=== PATIENT | male | born 1955 | race Caucasian/White ===

== ENCOUNTER 2021-09-09 20:36 | Inpatient (IN) | payer MEDICARE, OTHER ==
[~2021-09-09] VITALS: Ht 170.2 cm; Wt 81.2 kg
--- NOTE | 2021-09-09 21:04 | NUR ---
PATIENT CAME TO THE ER BED 7 BIBRA FROM HOME C/O SHORTNESS OF BREATH WITH 87% O2 ON ROOM AIR. PATIENT IS AT 93% 02 SATURATION WITH 1 L OF N/C. PATIENT IS ALERT AND ORIENTED x4. PATIENT TESTED POSITIVE FOR COVID ON WEDNESDAY (09/02/21). PATIENT IS CONNECTED TO THE MONITOR.
--- NOTE | 2021-09-09 21:36 | NUR ---
BLOOD COLLECTED AND SENT TO THE LAB.
[2021-09-09 21:40] LABS: BASOPHILS # (AUTO) 0.1 K/uL (0.0-0.2); BASOPHILS % (AUTO) 1.6 % (0.0-2.0); EOSINOPHILS % (AUTO) 12.3 % (0.0-6.0); HEMATOCRIT 41 % (39-51); HEMOGLOBIN 14.2 g/dL (13.5-17.5); LYMPHOCYTES # (AUTO) 1.2 K/uL (0.8-4.8); LYMPHOCYTES % (AUTO) 21.8 % (20.0-44.0); MEAN CORPUSCULAR HGB CONC 35 g/dl (31.0-36.0); MEAN CORPUSCULAR VOLUME 91 fL (80-96); MONOCYTES # (AUTO) 0.3 K/uL (0.1-1.30); MONOCYTES % (AUTO) 4.9 % (2.0-12.0); NEUTROPHILS # (AUTO) 3.3 K/uL (1.8-8.9); NEUTROPHILS % (AUTO) 59.4 % (43.0-81.0); PLATELET COUNT (AUTO) 138 K/uL (150-450); WHITE BLOOD COUNT (AUTO) 5.6 K/uL (4.3-11.0)
[2021-09-09 21:47] LABS: CALCIUM, SERUM 7.9 mg/dL (8.5-10.1); CARBON DIOXIDE 26 mmol/L (21-32); CHLORIDE 105 mmol/L (98-107); CREATININE 1.3 mg/dL (0.6-1.3); GLUCOSE 129 mg/dL (74-106); POTASSIUM 3.7 mmol/L (3.5-5.1); SODIUM SERUM 139 mmol/L (136-145); UREA NITROGEN, BLOOD 17 mg/dL (7-18)
[2021-09-09] MEDS ORDERED: CEFTRIAXONE 1GM BAG (ER ONLY) 50 ML IV ONE (22:29)
[2021-09-09] MEDS ORDERED: ACETAMINOPHEN ES 500 MG TABLET ONE (22:30)
[2021-09-09] MEDS ORDERED: AZITHROMYCIN 500 MG in IV D5W 250 ML IV ONE (22:30)
[2021-09-09] MEDS ORDERED: CEFTRIAXONE 1GM BAG (ER ONLY) 1 GM/50 ML PIGGYBACK IV ONE (22:30)
[2021-09-09] MEDS ORDERED: ACETAMINOPHEN 325 MG TABLET PO ONE (22:30)
[2021-09-09] MEDS ORDERED: AZITHROMYCIN 500 MG VIAL ONE (22:42)
--- NOTE | 2021-09-09 23:40 | NUR ---
DR JORGE ON THE PHONE W/ DR DAVIS
[2021-09-09] MEDS ORDERED: ACETAMINOPHEN 325 MG TABLET PO PRN (23:51)
[2021-09-09] MEDS ORDERED: ONDANSETRON HCL/PF 4 MG/2 ML VIAL IVP PRN (23:51)
[2021-09-10] VITALS (8 sets, daily range): BP systolic 141–155; BP diastolic 80–88
[2021-09-10] MEDS ORDERED: methylPREDNISolone SOD SUCC 125 MG/2ML VIAL IV ONE
--- NOTE | 2021-09-10 00:36 | NUR ---
report given to enid armando for kt
--- NOTE | 2021-09-10 00:45 | NUR ---
ADMIT NOTE RECEIVED PATIENT FROM ER, TRANSFERRED TO ROOM 108. AMBULATED TO BED WITH ASSISTANCE. PATIENT IS ALERT AND ORIENTED X3. LIBYAN SPEAKING, KNOWS SIMPLE BELARUSIAN. DENIES ANY PAIN AT THIS TIME. ON O2 3L VIA NASAL CANNULA, O2 SSAT 95%. NO S/S OF RESPIRATORY DISTRESS. TELE MONITOR ON, SR 80'S. SKIN ASSESSMENT DONE, SKIN IS CLEAN AND INTACT. IV ACCESS ON LEFT AC #20, PATENT AND INTACT. ORIENTED PATIENT TO ROOM, CALL LIGHT, AND STAFF. BED LOCKED AND IN LOWEST POSITION. CALL LIGHT WITHIN REACH. ALL NEEDS ANTICIPATED.
--- NOTE | 2021-09-10 00:57 | NUR ---
Pt transported to unit on gurney with emt and rn at bedside w/ acls protocol. nad noted during transport.
--- NOTE | 2021-09-10 06:31 | NUR ---
RN NOTE PATIENT IS RESTING IN BED. ON O2 3L VIA NASAL CANNULA, O2 SAT 94%. NO S/S OF RESPIRATORY DISTRESS. IV ACCESS ON LEFT AC #20, PATENT AND INTACT. SLEPT COMFORTABLY THROUGHOUT THE NIGHT. ALL NEEDS ATTENDED PROMPTLY. WILL ENDORSE TO AM SHIFT.
[2021-09-10 06:34] LABS: BASOPHILS % (AUTO) 0.3 % (0.0-2.0); HEMATOCRIT 39 % (39-51); LYMPHOCYTES # (AUTO) 0.9 K/uL (0.8-4.8); LYMPHOCYTES % (AUTO) 20.6 % (20.0-44.0); MEAN CORPUSCULAR HGB CONC 36 g/dl (31.0-36.0); MEAN CORPUSCULAR VOLUME 90 fL (80-96); MONOCYTES # (AUTO) 0.1 K/uL (0.1-1.30); MONOCYTES % (AUTO) 2.6 % (2.0-12.0); NEUTROPHILS # (AUTO) 3.4 K/uL (1.8-8.9); NEUTROPHILS % (AUTO) 76.5 % (43.0-81.0); PLATELET COUNT (AUTO) 125 K/uL (150-450); RED BLOOD CELL COUNT(AUTO) 4.38 MIL/uL (4.5-6.0); WHITE BLOOD COUNT (AUTO) 4.4 K/uL (4.3-11.0)
[2021-09-10] MEDS ORDERED: AZIT250T13 PO (08:46)
[2021-09-10] MEDS ORDERED: OMEP20CA15 PO (08:46)
[2021-09-10] MEDS ORDERED: GABA-532 PO (08:46)
[2021-09-10] MEDS ORDERED: PROM6.2516 PO (08:46)
[2021-09-10] MEDS ORDERED: AMLO-212 PO (08:46)
[2021-09-10] MEDS ORDERED: TOPI25TA49 PO (08:46)
[2021-09-10] MEDS ORDERED: TRAM50TA2 PO (08:46)
[2021-09-10] MEDS ORDERED: METH2.5T14 PO (08:46)
[2021-09-10] MEDS ORDERED: OXYB5TAB16 PO (08:46)
[2021-09-10] MEDS ORDERED: MECL-159 PO (08:46)
[2021-09-10] MEDS ORDERED: TERA1CAP11 PO (08:46)
[2021-09-10] MEDS: ZINC SULFATE 220 MG CAPSULE PO SCH (08:47)
[2021-09-10] MEDS: DEXAMETHASONE SOD PHOSPHATE 10 MG/ML VIAL IV SCH (08:47)
[2021-09-10] MEDS: ASCORBIC ACID 500 MG TABLET PO SCH (08:47)
[2021-09-10] MEDS: CHOLECALCIFEROL 1,000 UNIT TABLET (VIT D3) PO SCH (08:47)
[2021-09-10] MEDS ORDERED: DEXAMETHASONE SOD PHOSPHATE 6 MG in IV D5W 50 ML IV SCH (09:00)
[2021-09-10] MEDS: ENOXAPARIN SODIUM 40 MG/0.4 ML DISP.SYRIN SQ SCH ×2 (09:30→10:55)
[2021-09-10 09:59] LABS: CALCIUM, SERUM 7.9 mg/dL (8.5-10.1); CREATININE 1.2 mg/dL (0.6-1.3); POTASSIUM 4.2 mmol/L (3.5-5.1)
[2021-09-10] MEDS ORDERED: MECLIZINE HCL 25 MG TABLET PO PRN (10:00)
[2021-09-10] MEDS ORDERED: TRAMADOL HCL 50 MG TABLET PO PRN (10:00)
[2021-09-10] MEDS ORDERED: PROMETHAZINE HCL SYRUP 6.25 MG/5 ML UDC PO PRN (10:00)
[2021-09-10 10:19] LABS: ALBUMIN 3.1 g/dL (3.4-5.0); BILIRUBIN,DIRECT 0.2 mg/dL (0.0-0.2); BILIRUBIN,TOTAL 0.5 mg/dL (0.2-1.0); TOTAL PROTEIN, SERUM 7.3 g/dL (6.4-8.2)
[2021-09-10] MEDS ORDERED: REMDESIVIR (CHARGED) 200 MG, *LOADING DOSE 1 EA in IV NS 0.9% 210 ML IV ONE (11:00)
[2021-09-10] MEDS: TOPIRAMATE 25 MG TABLET PO SCH (16:06)
--- NOTE | 2021-09-10 19:56 | NUR ---
RN NOTE RECEIVED PATIENT IN BED, AWAKE, ALERT, AND VERBALLY RESPONSIVE. ABLE TO MAKE NEEDS KNOWN. BREATHING EVEN AND UNLABORED. NO SOB NOTED. NOTED WITH PRODUCTIVE COUGH. SURGICAL MASK PROVIDED TO PATIENT. CURRENTLY TOLERATING OXYGEN AT 2L/MIN VIA NASAL CANNULA. SKIN WARM AND DRY, DENIES FEELING DISCOMFORT AT THIS TIME. DENIES FEELING HEADACHE/N/V. SKIN WARM AND DRY. AFEBRILE. DENIES CONSTIPATION/DIARRHEA. NOTED WITH LEFT FOREARM 20G, PATENT, NO INFILTRATION NOTED. PROVIDED WITH BEDSIDE URINAL. BED LOW, IN LOCKED POSITION, CALL LIGHT WITHIN REACH.
[2021-09-11] VITALS: BP 142/81
[2021-09-11 04:00] VITALS: BP 141/85
[2021-09-11 07:25] LABS: ALBUMIN 2.9 g/dL (3.4-5.0); BILIRUBIN,DIRECT 0.2 mg/dL (0.0-0.2); BILIRUBIN,TOTAL 0.5 mg/dL (0.2-1.0); CALCIUM, SERUM 8.4 mg/dL (8.5-10.1); CREATININE 0.9 mg/dL (0.6-1.3); POTASSIUM 4.1 mmol/L (3.5-5.1); TOTAL PROTEIN, SERUM 7.1 g/dL (6.4-8.2)
[2021-09-11 07:35] LABS: BASOPHILS % (AUTO) 0.1 % (0.0-2.0); HEMATOCRIT 39 % (39-51); LYMPHOCYTES # (AUTO) 1.1 K/uL (0.8-4.8); LYMPHOCYTES % (AUTO) 18.6 % (20.0-44.0); MEAN CORPUSCULAR HGB CONC 36 g/dl (31.0-36.0); MEAN CORPUSCULAR VOLUME 89 fL (80-96); MONOCYTES # (AUTO) 0.6 K/uL (0.1-1.30); MONOCYTES % (AUTO) 9.4 % (2.0-12.0); NEUTROPHILS # (AUTO) 4.4 K/uL (1.8-8.9); NEUTROPHILS % (AUTO) 71.9 % (43.0-81.0); PLATELET COUNT (AUTO) 141 K/uL (150-450); RED BLOOD CELL COUNT(AUTO) 4.37 MIL/uL (4.5-6.0); WHITE BLOOD COUNT (AUTO) 6.1 K/uL (4.3-11.0)
--- NOTE | 2021-09-11 07:54 | NUR ---
RN NOTES RN ENDORSED BY OUTSIDE PHYSICAL DAMAGE APPRAISER NURSE AWAKE IN BED. PATIENT IS A&O X4. PATIENT SHOWS NO SIGNS OF DISTRESS OR SOB. BREATHING IS EVEN AND UNLABORED. BILATERAL CHEST RISE AND FALL NOTED. PATIENT IS NO 2L/MIN NC AND IS TOLERATING TREATMENT WELL. PATIENT EXPRESSES NO DISCOMFORT OR PAIN AT THIS TIME. ALL SAFETY MEASURES TAKEN. BED IS AT LOWEST POSITION WITH THE WHEELS LOCKED IN PLACE. CALL LIGHT IS WITHIN REACH. WILL CONTINUE TO MONITOR FOR ANY CHANGES IN CONDITION THROUGHOUT SHIFT.
[2021-09-11 08:00] VITALS: BP 151/88
[2021-09-11] MEDS: CHOLECALCIFEROL 1,000 UNIT TABLET (VIT D3) PO SCH (08:18)
[2021-09-11] MEDS: OXYBUTYNIN CHLORIDE 5 MG TABLET PO SCH (08:19)
[2021-09-11] MEDS: GABAPENTIN 100 MG CAPSULE PO SCH (08:19)
[2021-09-11] MEDS: PANTOPRAZOLE 40 MG TABLET.DR PO SCH (08:20)
[2021-09-11] MEDS: ENOXAPARIN SODIUM 40 MG/0.4 ML DISP.SYRIN SQ SCH (08:29)
[2021-09-11] MEDS: ASCORBIC ACID 500 MG TABLET PO SCH (08:30)
[2021-09-11] MEDS: TERAZOSIN HCL 1 MG CAPSULE PO SCH (08:30)
[2021-09-11] MEDS: AMLODIPINE BESYLATE 5 MG TABLET PO SCH (08:31)
[2021-09-11] MEDS: ZINC SULFATE 220 MG CAPSULE PO SCH (08:31)
[2021-09-11] MEDS: TOPIRAMATE 25 MG TABLET PO SCH ×2 (08:31→16:55)
[2021-09-11] MEDS: DEXAMETHASONE SOD PHOSPHATE 10 MG/ML VIAL IV SCH (08:32)
[2021-09-11] MEDS: REMDESIVIR (CHARGED) 100 MG in IV NS 0.9% 100 ML IV SCH (10:52)
--- NOTE | 2021-09-11 11:21 | NUR ---
RN NOTES RECEIVED BLOOD CULTURE REPORTS FROM [facility] WITH RESULTS OF GRAM POSITIVE COCCI IN CLUSTERS. MD NOTIFIED. AWAITING FOR FURTHER ORDERS. WILL CONTINE TO MONITOR.
[2021-09-11 12:00] VITALS: BP 112/54
[2021-09-11 16:00] VITALS: BP 148/76
--- NOTE | 2021-09-11 18:37 | NUR ---
RN CLOSING NOTES; PT IN BED RESTING. PT A/OX4, PLEASANT AND COOPERATIVE. PT AMBULATES TO THE RESTROOM INDEPENDENTLY. L FA #20 M FLUSHED, PATENT WITH NO SIGNS OF IFILTRATON. ALL MEDICATIONS GIVEN AND TOLERATED WELL. PT KEPT CLEAN, DRY, AND COMFORTABLE. SAFETY MEASURES RENDERED, BED IN LOWEST POSITION, LOCKED, WITH CALL LIGHT WITHIN REACH. ENDORSED TO PRECISION MARKET INSIGHTS RN IN STABLE CONDITION.
[2021-09-11 20:00] VITALS: BP 118/66
--- NOTE | 2021-09-11 20:00 | NUR ---
senior telecommunications consultant NOTE RECEIVED PATIENT IN BED, AWAKE, a/ox4, AND VERBALLY RESPONSIVE. ABLE TO MAKE NEEDS KNOWN. BREATHING EVEN AND UNLABORED. NO SOB NOTED. ON 2LITERS OF 02 VIA NC SATING 93%. SKIN WARM AND DRY, NO C/O OF PAIN OR DISCOMFORT . SKIN WARM AND DRY. AFEBRILE. NOTED WITH LEFT FOREARM 20G, PATENT, NO INFILTRATION NOTED. BED LOW, IN LOCKED POSITION, CALL LIGHT WITHIN REACH. PRECAUTIONARY MEASURES OBSERVED AT ALL TIMES .WILL CONTINUE TO MONITOR PTS.
[2021-09-12] VITALS: BP 140/71
[2021-09-12 04:00] VITALS: BP 141/87
--- NOTE | 2021-09-12 06:35 | NUR ---
MOTION GRAPHICS ARTIST NOTES Pts in bed awake a/o x4 remains on 2 liters via nc no sob no distress noted , v/s stable afebrile precautionary measures observed at all times . will endorse to rn day shift for continuity of care.
[2021-09-12 07:30] LABS: HEMATOCRIT 40 % (39-51); HEMOGLOBIN 13.7 g/dL (13.5-17.5); LYMPHOCYTES # (AUTO) 1.2 K/uL (0.8-4.8); LYMPHOCYTES % (AUTO) 10.4 % (20.0-44.0); MEAN CORPUSCULAR HGB CONC 34 g/dl (31.0-36.0); MEAN CORPUSCULAR VOLUME 91 fL (80-96); MONOCYTES # (AUTO) 0.9 K/uL (0.1-1.30); MONOCYTES % (AUTO) 7.7 % (2.0-12.0); NEUTROPHILS # (AUTO) 9.3 K/uL (1.8-8.9); NEUTROPHILS % (AUTO) 81.9 % (43.0-81.0); PLATELET COUNT (AUTO) 188 K/uL (150-450); WHITE BLOOD COUNT (AUTO) 11.3 K/uL (4.3-11.0)
--- NOTE | 2021-09-12 07:30 | NUR ---
RN OPENING NOTES: RECEIVED PT IN BED RESTING. PT A/OX4, PLEASANT AND COOPERATIVE. IN NO ACUTE DISTRESS NOTED, ON O2 VIA NC AT 2LPM, TOLERATING WELL, NO SOB NOTED AT THIS TIME. NOTED WITH IV ACCESS ON LFA g#20, FLUSHED, PATENT WITH NO SIGNS OF INFILTRATION. SAFETY MEASURES IN PLACE, BED IN LOWEST POSITION, LOCKED, WITH CALL LIGHT WITHIN REACH, SIED RAILS UP X 2. WILL CONTINUE TO MONITOR ACCORDINGLY.
[2021-09-12] MEDS: PANTOPRAZOLE 40 MG TABLET.DR PO SCH (07:46)
[2021-09-12 08:00] VITALS: BP 129/73
[2021-09-12 08:06] LABS: ALBUMIN 2.9 g/dL (3.4-5.0); BILIRUBIN,DIRECT 0.3 mg/dL (0.0-0.2); BILIRUBIN,TOTAL 0.6 mg/dL (0.2-1.0); CREATININE 1.1 mg/dL (0.6-1.3); POTASSIUM 3.7 mmol/L (3.5-5.1); TOTAL PROTEIN, SERUM 6.9 g/dL (6.4-8.2)
[2021-09-12] MEDS: DEXAMETHASONE SOD PHOSPHATE 10 MG/ML VIAL IV SCH (09:07)
[2021-09-12] MEDS: ASCORBIC ACID 500 MG TABLET PO SCH (09:08)
[2021-09-12] MEDS: ENOXAPARIN SODIUM 40 MG/0.4 ML DISP.SYRIN SQ SCH (09:08)
[2021-09-12] MEDS: CHOLECALCIFEROL 1,000 UNIT TABLET (VIT D3) PO SCH (09:09)
[2021-09-12] MEDS: AMLODIPINE BESYLATE 5 MG TABLET PO SCH (09:09)
[2021-09-12] MEDS: OXYBUTYNIN CHLORIDE 5 MG TABLET PO SCH (09:09)
[2021-09-12] MEDS: GABAPENTIN 100 MG CAPSULE PO SCH (09:10)
[2021-09-12] MEDS: ZINC SULFATE 220 MG CAPSULE PO SCH (09:13)
[2021-09-12] MEDS: TOPIRAMATE 25 MG TABLET PO SCH ×2 (09:13→17:32)
[2021-09-12] MEDS: TERAZOSIN HCL 1 MG CAPSULE PO SCH (09:14)
[2021-09-12] MEDS: REMDESIVIR (CHARGED) 100 MG in IV NS 0.9% 100 ML IV SCH (10:02)
--- NOTE | 2021-09-12 13:34 | NUR ---
patient room air sat at rest 86% per md arrange home oxygen,FACILITY ATTENDANT NOTIFIED.
[2021-09-12 16:17] VITALS: BP 125/65
--- NOTE | 2021-09-12 18:51 | NUR ---
RN CLOSING NOTES: PT IN BED RESTING. PT A/OX4, PLEASANT AND COOPERATIVE. IN NO ACUTE DISTRESS NOTED, ON O2 VIA NC AT 2LPM, TOLERATING WELL, NO SOB NOTED AT THIS TIME. NOTED WITH IV ACCESS ON LFA g#20, FLUSHED, PATENT WITH NO SIGNS OF INFILTRATION. SAFETY MEASURES IN PLACE, BED IN LOWEST POSITION, LOCKED, WITH CALL LIGHT WITHIN REACH, SIED RAILS UP X 2. ALL DUE MEDS GIVEN ORDERED, NEEDS ATTENDED AND MET. WILL ENDORSE TO ONCOMING SHIFT FOR ANGELA.
[2021-09-12 20:00] VITALS: BP 155/84
[2021-09-13 04:00] VITALS: BP 151/84
--- NOTE | 2021-09-13 05:55 | NUR ---
RN notes In bed resting comfortably with no distress noted. On 2 lpm O2 via nasal cannula , tolerating well. Alert and oriented., able to verbally communicate needs. No complaint of pain or discomfort. Kept clean and dry. Will endorse to next shift for continuity of care.
[2021-09-13 07:10] LABS: BASOPHILS # (AUTO) 0.1 K/uL (0.0-0.2); BASOPHILS % (AUTO) 0.7 % (0.0-2.0); EOSINOPHILS % (AUTO) 0.5 % (0.0-6.0); HEMATOCRIT 31 % (39-51); HEMOGLOBIN 10.3 g/dL (13.5-17.5); LYMPHOCYTES # (AUTO) 2.1 K/uL (0.8-4.8); LYMPHOCYTES % (AUTO) 17.2 % (20.0-44.0); MEAN CORPUSCULAR HGB CONC 33 g/dl (31.0-36.0); MEAN CORPUSCULAR VOLUME 94 fL (80-96); MONOCYTES % (AUTO) 7.8 % (2.0-12.0); NEUTROPHILS # (AUTO) 9.1 K/uL (1.8-8.9); NEUTROPHILS % (AUTO) 73.8 % (43.0-81.0); PLATELET COUNT (AUTO) 193 K/uL (150-450); RED BLOOD CELL COUNT(AUTO) 3.32 MIL/uL (4.5-6.0); WHITE BLOOD COUNT (AUTO) 12.3 K/uL (4.3-11.0)
--- NOTE | 2021-09-13 07:58 | NUR ---
MS/RN OPENING NOTES RECEIVED PATIENT ON BED AWAKE ALERT AND ORIENTED X4. PATIENT IS ON 2 L OXYGEN VIA NASAL CANNULA TOLERATING WELL. PATIENT IN NO APPARENT RESPIRATORY DISTRESS NOTED. NO COMPLAINED OF PAIN NOTED AT THIS TIME. WILL CONTINUE TO MONITOR.
[2021-09-13 08:03] LABS: ALBUMIN 2.7 g/dL (3.4-5.0); BILIRUBIN,DIRECT 0.1 mg/dL (0.0-0.2); BILIRUBIN,TOTAL 0.6 mg/dL (0.2-1.0); CALCIUM, SERUM 8.5 mg/dL (8.5-10.1); CREATININE 0.7 mg/dL (0.6-1.3); POTASSIUM 4.7 mmol/L (3.5-5.1); TOTAL PROTEIN, SERUM 5.9 g/dL (6.4-8.2)
[2021-09-13] MEDS: PANTOPRAZOLE 40 MG TABLET.DR PO SCH (08:25)
[2021-09-13] MEDS: CHOLECALCIFEROL 1,000 UNIT TABLET (VIT D3) PO SCH ×2 (08:25→08:50)
[2021-09-13] MEDS: ZINC SULFATE 220 MG CAPSULE PO SCH ×2 (08:25→08:52)
[2021-09-13] MEDS: TOPIRAMATE 25 MG TABLET PO SCH ×2 (08:50→16:29)
[2021-09-13] MEDS: ASCORBIC ACID 500 MG TABLET PO SCH (08:51)
[2021-09-13] MEDS: OXYBUTYNIN CHLORIDE 5 MG TABLET PO SCH (08:51)
[2021-09-13] MEDS: GABAPENTIN 100 MG CAPSULE PO SCH (08:52)
[2021-09-13] MEDS: TERAZOSIN HCL 1 MG CAPSULE PO SCH (08:53)
[2021-09-13] MEDS: AMLODIPINE BESYLATE 5 MG TABLET PO SCH (08:53)
[2021-09-13] MEDS: ENOXAPARIN SODIUM 40 MG/0.4 ML DISP.SYRIN SQ SCH (08:54)
[2021-09-13] MEDS: DEXAMETHASONE SOD PHOSPHATE 10 MG/ML VIAL IV SCH (08:55)
[2021-09-13] MEDS: METHOTREXATE SODIUM (2.5MG) 2.5 MG TABLET PO SCH ×2 (08:58→09:00)
--- NOTE | 2021-09-13 09:00 | NUR ---
MS/RN NOTES PATIENT REFUSED TO TAKE METHOTREXATE 15MG P.O. PATIENT VERBALIZED HE DOESN'T WANT TO MIX WITH OTHER MEDICATIONS. MD WAS AWARE.
--- NOTE | 2021-09-13 10:00 | NUR ---
MS/RN NOTES 0800 PATIENTS IS ON 2 L OXYGEN VIA NASAL CANNULA SA02 87% TITRATE OXYGEN TO 10 L VIA FACE MASK SA02 96%-99% PATIENT WAS CALM AND NO APPARENT RESPIRATORY DISTRESS NOTED. WILL CONTINUE TO MONITOR.
[2021-09-13] MEDS: REMDESIVIR (CHARGED) 100 MG in IV NS 0.9% 100 ML IV SCH (10:03)
--- NOTE | 2021-09-13 18:54 | NUR ---
MS/RN CLOSING NOTES PATIENT IS ON BED AWAKE ALERT AND ORIENTED X X4. PATIENT IS ON 10L OXYGEN VIA FACE MASK SATURATION 95%. PATIENT IN NO APPARENT RESPIRATORY DISTRESS NOTED. NO COMPLAINED OF PAIN NOTED AT THIS TIME. IV ACCESS AT LEFT AC AC #20G PATENT AND INTACT. SEEN AND EXAMINED BY MD WITH ORDERS MADE AND CARRIED OUT ALL DUE MEDICATIONS WAS GIVEN. SAFETY PRECAUTIONS WAS IN PLACED. BED IN LOWEST POSITION AND LOCKED. SIDERAILS UP X2. CALL LIGHT WITHIN REACH. WILL ENDORSED TO BELLSTAND ATTENDANT FOR ANGELA.
--- NOTE | 2021-09-13 19:00 | NUR ---
RN NOTE RECEIVED PATIENT IN BED, AO X 4, IN NO S/SX OF ACUTE DISTRESS AT THIS TIME. RESPIRATIONS EVEN AND UNLABORED, SATURATION AT 94% ON 10L VIA SIMPLE MASK, HR IS 97. NOTED IV SITE AT LAC 20G, PATENT AND FLUSHING WELL, NO S/S OF INFECTION OR INFILTRATION. SAFETY MEASURES IMPLEMENTED. HEAD OF BED ELEVATED. BED IS LOCKED, IN LOWEST POSITION AND SIDE RAILS UP. CALL LIGHT WITHIN REACH OF THE PATIENT. WILL CONTINUE TO MONITOR AND REASSESS FOR ANY CHANGES.
[2021-09-13 20:00] VITALS: BP 137/76
[2021-09-14] VITALS: BP 134/65
[2021-09-14 04:00] VITALS: BP 132/83
[2021-09-14 06:36] LABS: ALBUMIN 2.9 g/dL (3.4-5.0); BILIRUBIN,DIRECT 0.2 mg/dL (0.0-0.2); BILIRUBIN,TOTAL 0.6 mg/dL (0.2-1.0); CREATININE 0.8 mg/dL (0.6-1.3); POTASSIUM 4.6 mmol/L (3.5-5.1); TOTAL PROTEIN, SERUM 6.4 g/dL (6.4-8.2)
[2021-09-14 06:49] LABS: BASOPHILS % (AUTO) 0.1 % (0.0-2.0); EOSINOPHILS % (AUTO) 0.2 % (0.0-6.0); HEMATOCRIT 32 % (39-51); HEMOGLOBIN 10.7 g/dL (13.5-17.5); LYMPHOCYTES # (AUTO) 1.4 K/uL (0.8-4.8); MEAN CORPUSCULAR HGB CONC 34 g/dl (31.0-36.0); MEAN CORPUSCULAR VOLUME 94 fL (80-96); MONOCYTES # (AUTO) 0.7 K/uL (0.1-1.30); MONOCYTES % (AUTO) 5.7 % (2.0-12.0); NEUTROPHILS # (AUTO) 9.7 K/uL (1.8-8.9); PLATELET COUNT (AUTO) 209 K/uL (150-450); WHITE BLOOD COUNT (AUTO) 11.8 K/uL (4.3-11.0)
[2021-09-14 06:59] LABS: CALCIUM, SERUM 8.8 mg/dL (8.5-10.1)
--- NOTE | 2021-09-14 07:20 | NUR ---
RN NOTE PATIENT IS IN BED WITH HOB AT SEMI FOWLERS POSITION. PATIENT IS ON 15L NRB. PATIENT IS AOX4. LAC 20G IS PATENT AND INTACT. BED IS LOCKED IN THE LOWEST POSITION, 3 GUARD RAILS RAISED, CALL LORENZO WITHIN REACH, AND ALL HOSPITAL SAFETY PRECAUTIONS ARE BEING FOLLOWED. WILL CONTINUE TO MONITOR THROUGHOUT SHIFT.
[2021-09-14 08:00] VITALS: BP 142/74
[2021-09-14] MEDS: CHOLECALCIFEROL 1,000 UNIT TABLET (VIT D3) PO SCH (08:44)
[2021-09-14] MEDS: OXYBUTYNIN CHLORIDE 5 MG TABLET PO SCH (08:44)
[2021-09-14] MEDS: ZINC SULFATE 220 MG CAPSULE PO SCH (08:44)
[2021-09-14] MEDS: PANTOPRAZOLE 40 MG TABLET.DR PO SCH (08:44)
[2021-09-14] MEDS: GABAPENTIN 100 MG CAPSULE PO SCH (08:45)
[2021-09-14] MEDS: TERAZOSIN HCL 1 MG CAPSULE PO SCH (08:45)
[2021-09-14] MEDS: DEXAMETHASONE SOD PHOSPHATE 10 MG/ML VIAL IV SCH (08:46)
[2021-09-14] MEDS: ASCORBIC ACID 500 MG TABLET PO SCH (08:46)
[2021-09-14] MEDS: TOPIRAMATE 25 MG TABLET PO SCH ×2 (08:46→16:20)
[2021-09-14] MEDS: AMLODIPINE BESYLATE 5 MG TABLET PO SCH (08:46)
[2021-09-14] MEDS: ENOXAPARIN SODIUM 40 MG/0.4 ML DISP.SYRIN SQ SCH (08:47)
[2021-09-14] MEDS: REMDESIVIR (CHARGED) 100 MG in IV NS 0.9% 100 ML IV SCH (09:44)
--- NOTE | 2021-09-14 18:51 | NUR ---
RN NOTE PATIENT IS IN BED WITH HOB AT SEMI FOWLERS POSITION. PATIENT IS ON 15L NRB SATURATING 94%. PATIENT IS AOX4. LAC 20G IS PATENT AND INTACT. BED IS LOCKED IN THE LOWEST POSITION, 3 GUARD RAILS RAISED, CALL LORENZO WITHIN REACH, AND ALL HOSPITAL SAFETY PRECAUTIONS ARE BEING FOLLOWED. ALL DUE MEDS GIVEN AND PATIENT REMAINED STABLE THROUGHOUT SHIFT. WILL ENDORSE TO FIELD SUPPORT SPECIALIST RN.
[2021-09-14 20:00] VITALS: BP 130/65
[2021-09-14 20:34] VITALS: BP 130/65
--- NOTE | 2021-09-15 06:35 | NUR ---
RN NOTES PATIENT REMAINS STABLE THE WHOLE SHIFT NO SIGNIFICANT CHANGES. STILL IN NON REBREATHER MASK AT 15LPM TOLERATED WELL O2 SAT 92-94%. NO DISTRESS, NO SOB NO PAIN NOTED THIS SHIFT. SAFETY MEASURES IN PLACE AT ALL TIMES, HOB ELEVATED, BED IN LOWEST POSITION AND LOCKED. CALL LIGHT WITHIN REACH. ALL NEEDS ATTENDED. FREQUENT VISUAL MONITORING DONE. ENDORSED
[2021-09-15 07:11] LABS: BASOPHILS % (AUTO) 0.1 % (0.0-2.0); HEMATOCRIT 39 % (39-51); HEMOGLOBIN 13.6 g/dL (13.5-17.5); LYMPHOCYTES # (AUTO) 1.8 K/uL (0.8-4.8); LYMPHOCYTES % (AUTO) 11.6 % (20.0-44.0); MEAN CORPUSCULAR HGB CONC 35 g/dl (31.0-36.0); MEAN CORPUSCULAR VOLUME 90 fL (80-96); MONOCYTES # (AUTO) 1.1 K/uL (0.1-1.30); MONOCYTES % (AUTO) 7.2 % (2.0-12.0); NEUTROPHILS # (AUTO) 12.3 K/uL (1.8-8.9); NEUTROPHILS % (AUTO) 81.1 % (43.0-81.0); PLATELET COUNT (AUTO) 288 K/uL (150-450); RED BLOOD CELL COUNT(AUTO) 4.35 MIL/uL (4.5-6.0); WHITE BLOOD COUNT (AUTO) 15.2 K/uL (4.3-11.0)
[2021-09-15 07:44] LABS: CALCIUM, SERUM 8.4 mg/dL (8.5-10.1)
--- NOTE | 2021-09-15 07:50 | NUR ---
RN MS OPENING NOTES PT OBSERVED IN BED, PCR COVID POSITIVE, ISOLATION PRECAUTIONS OBSERVED, RESPIRATION EVEN AND UNLABORED WITH NO SIGN OF DISTRESS AT THIS TIME, PT IS ON OXYGEN, NON REBREATHER MASK 15L/MIN SATURATION 96%. PATIENT IS ALERT AND ORIENTED X4 ABLE TO VERBALIZED NEEDS, CONTINENT AND ABLE TO AMBULATE TO THE BATHROOM WITH ASSISTANCE, ON A REGULAR DIET. LAC MARY 20 PATENT AND INFUSING WELL, WILL CONTINUE PLAN OF CARE SAFETY MEASURE OBSERVED CALL LIGHT WITHIN REACH BED LOCKED WILL CONTINUE TO MONITOR
[2021-09-15] MEDS: PANTOPRAZOLE 40 MG TABLET.DR PO SCH (07:59)
[2021-09-15 08:00] VITALS: BP 126/79
[2021-09-15] MEDS: OXYBUTYNIN CHLORIDE 5 MG TABLET PO SCH (08:56)
[2021-09-15] MEDS: GABAPENTIN 100 MG CAPSULE PO SCH (08:59)
[2021-09-15] MEDS: AMLODIPINE BESYLATE 5 MG TABLET PO SCH (08:59)
[2021-09-15] MEDS: ZINC SULFATE 220 MG CAPSULE PO SCH (08:59)
[2021-09-15] MEDS: ASCORBIC ACID 500 MG TABLET PO SCH (08:59)
[2021-09-15] MEDS: TOPIRAMATE 25 MG TABLET PO SCH ×2 (08:59→16:38)
[2021-09-15] MEDS: TERAZOSIN HCL 1 MG CAPSULE PO SCH (09:00)
[2021-09-15] MEDS: DEXAMETHASONE SOD PHOSPHATE 10 MG/ML VIAL IV SCH (09:00)
[2021-09-15] MEDS: CHOLECALCIFEROL 1,000 UNIT TABLET (VIT D3) PO SCH (09:00)
[2021-09-15] MEDS: ENOXAPARIN SODIUM 40 MG/0.4 ML DISP.SYRIN SQ SCH (09:02)
--- NOTE | 2021-09-15 09:30 | NUR ---
RN NOTE PER DR. PARR START PATIENT ON HIGH FLOW 40L WITH 100%FiO2, ABG AFTER. ORDERS NOTED AND CARRIED OUT.
[2021-09-15 11:26] LABS: BAND % (MANUAL) 4 % (0.0-5.0); LYMPHOCYTES % (MANUAL) 16 % (16-48); MONOCYTES % (MANUAL) 10 % (0-11.0); NEUTROPHILS % (MANUAL) 70 (42-76)
[2021-09-15 13:25] LABS: ABG BASE EXCESS -0.8 mmol/L; ABG PCO2 30.9 mmHg (35.0-45.0); ABG PH 7.468 (7.350-7.450); ABG PO2 53.4 mmHg (75.0-100.0); COHb 0.3 % (0.5-1.5); MetHb 0.4 % (0.0-1.5); O2Hb 88.4 % (94.0-97.0); SITE, ABG Right Radial; VENT MODE, BG Vapotherm 40L / 100%
--- NOTE | 2021-09-15 13:30 | NUR ---
RN NOTES PER DOCTOR PELEG CONTINUE HIGH FLOW 40L ON 100% FIOT Addendum: 09/15/21 at 1436 by DAREK RAGLNAD RN RN NOTES PER DOCTOR PELEG CONTINUE HIGH FLOW 40L ON 100% FIO2 ADDITIONAL ORDER NON REBREATHER 15L/MIN TOLERATED.
[2021-09-15] MEDS: ACETAMINOPHEN 325 MG TABLET PO ONE ×2 (17:02→17:27)
[2021-09-15] MEDS: diphenhydrAMINE HCL 50 MG/ML VIAL IV ONE ×2 (17:02→17:27)
[2021-09-15] MEDS ORDERED: TOCILIZUMAB 600 MG in IV NS 0.9% 70 ML IV ONE (17:30)
[2021-09-15] MEDS ORDERED: TOCILIZUMAB IV ONE (18:00)
[2021-09-15] MEDS ORDERED: NS 0.9% IV ONE (18:00)
--- NOTE | 2021-09-15 18:10 | NUR ---
RN NOTE ACTEMRA ADMINISTERED ORDERED, TEMP 98.1, HR OF 101, RR OF 19, O2 SAT OF 98%, BP OF 116/69, WILL CONTINUE TO MONITOR FOR TRANSFUSION REACTION.
--- NOTE | 2021-09-15 18:49 | NUR ---
RN MS OPENING NOTES PT OBSERVED IN BED, PCR COVID POSITIVE, ISOLATION PRECAUTIONS OBSERVED, RESPIRATION EVEN AND UNLABORED WITH NO SIGN OF DISTRESS AT THIS TIME, PT IS ON OXYGEN, NON REBREATHER MASK 15L/MIN WITH HF 40 LPM WITH 100% FiO2 SATURATION 96%. PATIENT IS ALERT AND ORIENTED X4 ABLE TO VERBALIZED NEEDS, CONTINENT AND ABLE TO AMBULATE TO THE BATHROOM WITH ASSISTANCE, ON A REGULAR DIET. LAC MARY 20 PATENT AND INFUSING WELL, ON ACTEMRA NO ADVERSE REACTION NOTED AT THIS TIME, WILL CONTINUE PLAN OF CARE SAFETY MEASURE OBSERVED CALL LIGHT WITHIN REACH BED LOCKED WILL ENDORSE TO NOC SHIFT.
--- NOTE | 2021-09-15 19:45 | NUR ---
RN OPENING NOTES PATIENT ON NON REBREATHER MASK 15L/MIN WITH HF 40 LPM WITH 100% FiO2 SATURATION >95% AT THIS TIME, A/O X4 ABLE TO MAKE NEEDS KNOW, LAC MARY 20 PATENT AND INFUSING WELL, ACTEMRA INFUSING AT THIS TIME, NO ADVERSE REACTION NOTED AT THIS TIME, ALL MEASURE OBSERVED, ON COVID ISOLATION, CALL LIGHT WITHIN REACH BED LOCKED AND LOWEST POSITION, WILL CONTINUE TO MONITOR CLOSELY,
[2021-09-15 22:00] VITALS: BP 105/64
[2021-09-16 07:02] LABS: BASOPHILS # (AUTO) 0.1 K/uL (0.0-0.2); BASOPHILS % (AUTO) 0.4 % (0.0-2.0); HEMATOCRIT 37 % (39-51); LYMPHOCYTES # (AUTO) 1.4 K/uL (0.8-4.8); LYMPHOCYTES % (AUTO) 9.7 % (20.0-44.0); MEAN CORPUSCULAR HGB CONC 35 g/dl (31.0-36.0); MEAN CORPUSCULAR VOLUME 90 fL (80-96); MONOCYTES # (AUTO) 0.8 K/uL (0.1-1.30); MONOCYTES % (AUTO) 5.4 % (2.0-12.0); NEUTROPHILS # (AUTO) 12.1 K/uL (1.8-8.9); NEUTROPHILS % (AUTO) 84.5 % (43.0-81.0); PLATELET COUNT (AUTO) 318 K/uL (150-450); RED BLOOD CELL COUNT(AUTO) 4.17 MIL/uL (4.5-6.0); WHITE BLOOD COUNT (AUTO) 14.3 K/uL (4.3-11.0)
[2021-09-16 07:32] LABS: CALCIUM, SERUM 8.1 mg/dL (8.5-10.1); POTASSIUM 3.9 mmol/L (3.5-5.1)
--- NOTE | 2021-09-16 07:44 | NUR ---
RN CLOSING NOTES PATIENT CONT ON NON REBREATHER MASK 15L/MIN WITH HF 40 LPM WITH 100% FiO2 SATURATION 92-97% AT THOROUGH THE NIGHT, NO SIGNIFICANT CHANGE IN CONDITION DURING THE NIGHT, WILL ENDORSE CONTINUITY OF CARE TO ONCOMING NURSE.
[2021-09-16] MEDS: PANTOPRAZOLE 40 MG TABLET.DR PO SCH (07:45)
--- NOTE | 2021-09-16 07:45 | NUR ---
RN OPENING NOTES RECEIVED PATIENT RESTING IN BED, CPR COVID POSITIVE ISOLATION PRECAUTIONS OBSERVED, PT IS ALERT AND ORIENTED X4 WORRIED ABOUT OXYGEN SAT, TEACHING PROVIDED, PT IS ON NON REBREATHER MASK 15L/MIN WITH HIGH FLOW 40 LPM WITH 100% FiO2 SATURATION 92-96% , SKIN INTACT, LEFT IV AC 20G IN PLACE PATENT AND FLUSHING WELL, SAFETY MEASURE IN PLACE, BED LOCKED AND IN LOWEST POSITION, WILL CONTINUE TO MONITOR FOR CARE PLAN PROGRESS Addendum: 09/16/21 at 1231 by DAREK RAGLAND RN PCR PENDING
[2021-09-16 08:00] VITALS: BP_SYST 147; BP_SYST 152; BP_DIAS 82; BP_DIAS 91
--- NOTE | 2021-09-16 08:21 | NUR ---
karly rn note seen by dr carmona updated patient condition
[2021-09-16] MEDS: ZINC SULFATE 220 MG CAPSULE PO SCH (08:34)
[2021-09-16] MEDS: GABAPENTIN 100 MG CAPSULE PO SCH (08:34)
[2021-09-16] MEDS: ASCORBIC ACID 500 MG TABLET PO SCH (08:35)
[2021-09-16] MEDS: CHOLECALCIFEROL 1,000 UNIT TABLET (VIT D3) PO SCH (08:35)
[2021-09-16] MEDS: AMLODIPINE BESYLATE 5 MG TABLET PO SCH (08:35)
[2021-09-16] MEDS: OXYBUTYNIN CHLORIDE 5 MG TABLET PO SCH (08:35)
[2021-09-16] MEDS: TOPIRAMATE 25 MG TABLET PO SCH ×2 (08:36→17:18)
[2021-09-16] MEDS: DEXAMETHASONE SOD PHOSPHATE 10 MG/ML VIAL IV SCH (08:36)
[2021-09-16] MEDS: TERAZOSIN HCL 1 MG CAPSULE PO SCH (08:36)
[2021-09-16] MEDS: ENOXAPARIN SODIUM 40 MG/0.4 ML DISP.SYRIN SQ SCH (08:37)
[2021-09-16 09:39] LABS: LYMPHOCYTES % (MANUAL) 7 % (16-48); MONOCYTES % (MANUAL) 6 % (0-11.0); NEUTROPHILS % (MANUAL) 87 (42-76)
[2021-09-16 12:12] VITALS: BP 141/73
[2021-09-16 16:38] VITALS: BP 135/92
--- NOTE | 2021-09-16 18:34 | NUR ---
RN CLOSING NOTES PT OBSERVED IN BED, ISOLATION PRECAUTIONS IN PLACE, RESPIRATION EVEN AND UNLABORED WITH NO SIGN OF DISTRESS AT THIS TIME, PT IS ON OXYGEN, NON REBREATHER MASK 15L/MIN WITH HF 40 LPM WITH 100% FiO2 SATURATION 92%-96%. PATIENT IS ALERT AND ORIENTED X4 ABLE TO VERBALIZED NEEDS, VERY COMPLIANT, CONTINENT AND ABLE TO AMBULATE TO THE BATHROOM WITH ASSISTANCE, TELE READING SR 86, PT IS ON A REGULAR DIET. LAC MARY 20 PATENT AND FLUSHING WELL, ALL NEEDS MET DURING SHIFT, SAFETY MEASURE OBSERVED CALL LIGHT WITHIN REACH BED LOCKED IN LOWEST POSITION WILL ENDORSE TO NAPHTHALENE STILL OPERATORTENON MACHINE OPERATOR.
[2021-09-16 20:00] VITALS: BP 144/75
[2021-09-17] VITALS: BP 149/79
[2021-09-17 04:00] VITALS: BP 145/85
[2021-09-17] MEDS: PANTOPRAZOLE 40 MG TABLET.DR PO SCH (07:57)
[2021-09-17 08:00] VITALS: BP 152/91
[2021-09-17] MEDS: CHOLECALCIFEROL 1,000 UNIT TABLET (VIT D3) PO SCH (08:19)
[2021-09-17] MEDS: ASCORBIC ACID 500 MG TABLET PO SCH (08:19)
[2021-09-17] MEDS: OXYBUTYNIN CHLORIDE 5 MG TABLET PO SCH (08:20)
[2021-09-17] MEDS: GABAPENTIN 100 MG CAPSULE PO SCH (08:20)
[2021-09-17] MEDS: ZINC SULFATE 220 MG CAPSULE PO SCH (08:20)
[2021-09-17] MEDS: TOPIRAMATE 25 MG TABLET PO SCH ×2 (08:21→17:19)
[2021-09-17] MEDS: AMLODIPINE BESYLATE 5 MG TABLET PO SCH (08:23)
[2021-09-17] MEDS: TERAZOSIN HCL 1 MG CAPSULE PO SCH (08:23)
[2021-09-17] MEDS: DEXAMETHASONE SOD PHOSPHATE 10 MG/ML VIAL IV SCH (08:24)
[2021-09-17] MEDS: ENOXAPARIN SODIUM 40 MG/0.4 ML DISP.SYRIN SQ SCH (08:27)
--- NOTE | 2021-09-17 19:33 | NUR ---
RN CLOSING NOTES PATIENT IN BED , RESPIRATION EVEN AND UNLABORED WITH NO SIGN OF DISTRESS AT THIS TIME, PT IS ON OXYGEN, NON REBREATHER MASK 15L/MIN WITH HF 40 LPM WITH 100% FiO2 SATURATION 92%-98%. PATIENT WITH EPISODE OF DESATURATION, TELE READING SR 80-90S DURING THE DAY, PT WITH EPISODE OF DESATURATION DROPS QUICK TO HIGH 70S, PELEG AWARE AND PER HIM TO ENCOURAGE PATIENT PRONE POSITION TOLERATED, PATIENT AWARE AND VERY COMPLIANT WELL THE FAMILY ENCOURAGING THE PATIENT, STAYS FOR ABOUT 3 HOURS ON PRONE POSITION WITH O2 97-98 AT THAT TIME, ALL NEEDS MET DURING SHIFT, SAFETY MEASURE IN PLACE, CALL LIGHT WITHIN REACH, BED LOCKED IN LOWEST POSITION, ENDORSED TO MORAIMA MANUEL FOR CONTINUATION OF CARE.
[2021-09-17 20:00] VITALS: BP 142/84
[2021-09-18] VITALS: BP 146/85
[2021-09-18 04:00] VITALS: BP 144/87
--- NOTE | 2021-09-18 07:18 | NUR ---
NURSE OPENING NOTE PATIENT IN STABLE CONDITION AT TIME OF REPORT. NO SIGN OF DISTRESS. PATIENT IS ON NON REBREATHER AT 15ML/MIN. PATIENT IS ON TELE MONITOR. WILL FOLLOW UP WITH MORNING ABG RESULTS. ALL SAFETY MEASURE IN PLACE. BED ON LOWEST POSITION WITH HOB ELEVATED AND 3 SIDE RAIL UP. CALL LIGHT WITHIN REACH. WILL CONTINUE TO MONITOR.
[2021-09-18 08:00] VITALS: BP 152/98
[2021-09-18] MEDS: GABAPENTIN 100 MG CAPSULE PO SCH (08:09)
[2021-09-18] MEDS: OXYBUTYNIN CHLORIDE 5 MG TABLET PO SCH (08:09)
[2021-09-18] MEDS: PANTOPRAZOLE 40 MG TABLET.DR PO SCH (08:09)
[2021-09-18] MEDS: CHOLECALCIFEROL 1,000 UNIT TABLET (VIT D3) PO SCH (08:09)
[2021-09-18] MEDS: ASCORBIC ACID 500 MG TABLET PO SCH (08:09)
[2021-09-18] MEDS: ZINC SULFATE 220 MG CAPSULE PO SCH (08:10)
[2021-09-18] MEDS: TOPIRAMATE 25 MG TABLET PO SCH ×2 (08:10→17:05)
[2021-09-18] MEDS: TERAZOSIN HCL 1 MG CAPSULE PO SCH (08:20)
[2021-09-18] MEDS: AMLODIPINE BESYLATE 5 MG TABLET PO SCH (08:20)
[2021-09-18] MEDS: ENOXAPARIN SODIUM 40 MG/0.4 ML DISP.SYRIN SQ SCH (08:21)
[2021-09-18 08:28] LABS: ABG BASE EXCESS -1.7 mmol/L; ABG OXYGEN SATURATION 96.7 % (92.0-98.5); ABG PCO2 33.2 mmHg (35.0-45.0); ABG PH 7.432 (7.350-7.450); ABG PO2 90.6 mmHg (75.0-100.0); AaDO2 589.2 mmHg; COHb 0.3 % (0.5-1.5); MetHb 0.2 % (0.0-1.5); O2Hb 96.2 % (94.0-97.0); SITE, ABG Right Radial; VENT MODE, BG high flow 40 L/ 100% FIO2
--- NOTE | 2021-09-18 08:56 | NUR ---
FIO2 DECREASED FROM 100% TO 90% DUE TO 100% SATURATION AND 90 PAO2 ON ABG's RN NOTIFIED ON CHANGES MADE. Addendum: 09/18/21 at 0859 by ELVIS ARMENTA RT Amended: Links added.
[2021-09-18] MEDS: DEXAMETHASONE SOD PHOSPHATE 10 MG/ML VIAL IV SCH (10:03)
[2021-09-18 12:00] VITALS: BP 147/82
[2021-09-18 16:00] VITALS: BP 140/80
--- NOTE | 2021-09-18 19:07 | NUR ---
NURSE CLOSING NOTE PATIENT IN STABLE CONDITION WITH NO SIGN OF DISTRESS. NONREBREATHER WAS REMOVED. MAINTAIN HIGH FLOW NC @40L/MIN. PATIENT MAINTAIN O2 SAT 88-93%. TOOK ALL MEDICATIONS. AMBULATE WITH ASSIST. SKIN IS INTACT. ABG WAS DRAWN WITH RESULTS. ALL SAFETY MEASURE IN PLACE. PROPER INSOLATION IN PLACE. BED ON LOWEST POSITION WITH HOB ELEVATED AND 3 SIDE RAIL UP. CALL LIGHT WITHIN REACH. WILL CONTINUE TO MONITOR AND REPORT TO ON COMING NURSE.
[2021-09-18 20:00] VITALS: BP 131/74
--- NOTE | 2021-09-18 20:00 | NUR ---
CLAIM CLERK NOTES RECEIVED PATIENT IN BED ON PRONE POSITION A/OX4 ON 40LITERS OF HI FLOW 90%FIO2 COVID POSITIVE ISOLATION PRECAUTIONS OBSERVED, TEACHING PROVIDED, SATURATION 93-964% NO DISTRESS NOTED AT THIS TIME , NO C/O OF PAIN . LEFT IV AC 20G IN PLACE PATENT AND FLUSHING WELL, SAFETY MEASURE IN PLACE, BED LOCKED AND IN LOWEST POSITION, WILL CONTINUE TO MONITOR PTS,
[2021-09-19] VITALS: BP 140/66
[2021-09-19 04:00] VITALS: BP 148/83
--- NOTE | 2021-09-19 06:48 | NUR ---
TUMOR REGISTRAR NOTES PATIENT IN BED , RESPIRATION EVEN AND UNLABORED WITH NO SIGN OF DISTRESS AT THIS TIME, PT IS ON OXYGEN, HF 40 LITERS WITH 90% FiO2 SATURATION 94%-95%. WILL ENDORSE TO RN DAY SHIFT FOR CONTINUITY OF CARE,
--- NOTE | 2021-09-19 07:08 | NUR ---
RN OPENING NOTE PATIENT REMAIN IN STABLE CONDITION WITH NO SIGN OF DISTRESS. REMAIN OF HIGH FLOW NC AT 40L/MIN. TOLERATE WELL. PROPER INSOLATION PRECAUTION IN PLACE. ALL SAFETY MEASURE IN PLACE. BED ON LOWEST POSITION WITH 3 SIDE RAIL UP. CALL LIGHT WITHIN REACH. WILL CONTINUE TO MONITOR.
[2021-09-19 08:00] VITALS: BP 129/84
[2021-09-19] MEDS: PANTOPRAZOLE 40 MG TABLET.DR PO SCH (08:07)
[2021-09-19] MEDS: ASCORBIC ACID 500 MG TABLET PO SCH (08:07)
[2021-09-19] MEDS: ZINC SULFATE 220 MG CAPSULE PO SCH (08:07)
[2021-09-19] MEDS: TOPIRAMATE 25 MG TABLET PO SCH ×2 (08:07→16:21)
[2021-09-19] MEDS: CHOLECALCIFEROL 1,000 UNIT TABLET (VIT D3) PO SCH (08:07)
[2021-09-19] MEDS: OXYBUTYNIN CHLORIDE 5 MG TABLET PO SCH (08:07)
[2021-09-19] MEDS: DEXAMETHASONE SOD PHOSPHATE 10 MG/ML VIAL IV SCH (08:08)
[2021-09-19] MEDS: GABAPENTIN 100 MG CAPSULE PO SCH (08:08)
[2021-09-19] MEDS: AMLODIPINE BESYLATE 5 MG TABLET PO SCH (08:10)
[2021-09-19] MEDS: TERAZOSIN HCL 1 MG CAPSULE PO SCH (08:10)
[2021-09-19] MEDS: ENOXAPARIN SODIUM 40 MG/0.4 ML DISP.SYRIN SQ SCH (08:15)
[2021-09-19 12:00] VITALS: BP 136/73
[2021-09-19 16:00] VITALS: BP 131/71
--- NOTE | 2021-09-19 18:01 | NUR ---
RN CLOSING NOTE PATIENT REMAIN IN STABLE CONDITION THROUGH OUT SHIFT. TOOK ALL MEDICATIONS. REMAIN ON HIGH FLOW NASAL CANULA AT 40L/MIN. MAINTAINING O2 SAT @ MID 90S. CHEST PT WAS ORDERED. PROPER PRECAUTION IN PLACE. BED ON LOWEST POSITION WITH HOB ELEVATED AND 3 SIDE RAIL UP. CALL LIGHT WITHIN REACH. WILL CONTINUE TO MONITOR AND REPORT TO ON COMING NURSE.
[2021-09-19 20:00] VITALS: BP 146/70
[2021-09-20] VITALS: BP 143/77
[2021-09-20 04:00] VITALS: BP 130/78
--- NOTE | 2021-09-20 05:19 | NUR ---
RN notes Alert oriented and verbally able to communicate needs verbally. In bed resting comfortably watching TV with no distress noted. Breathing even and unlabored. On high flow oxygen at 40% Fi02 tolerating well.. No complaint of pain or discomfort. Vital signs wnl. No significant change of condition. Kept clean and dry. Will endorse to next shift for community of care.
--- NOTE | 2021-09-20 07:30 | NUR ---
RN NOTE PATIENT AWAKE IN BED, ALERT AND ORIENTED X4 ABLE TO VERBALIZE NEEDS, PATIENT ON HF 20LPM WITH FiO2 OF 60% AT THIS TIME, O2 SAT OF 98% AT REST, BREATHING EVEN AND UNLABORED, TOLERATING WELL, ON TELE MONITOR SR AT THIS TIME NO COMPLAINS OF PAIN, CONTINENT ON BOWEL AND BLADDER, BATHROOM PRIVILEGES, WITH LEFT AC GAUGE 20 PATENT FLUSHING WELL, ON REGULAR DIET, ISOLATION PRECAUTION OBSERVED, SAFETY MEASURES OBSERVED, BED WHEELS LOCK, CALL LIGHT WITHIN REACH, WILL CONTINUE TO MONITOR.
[2021-09-20 08:00] VITALS: BP 144/81
--- NOTE | 2021-09-20 08:10 | NUR ---
RN NOTE PATIENT ON O2 VIA NASAL CANNULA @ 6LPM O2 SAT OF 91% BREATHING EVEN AND UNLABORED TOLERATING WELL.
[2021-09-20 08:11] LABS: BASOPHILS % (AUTO) 0.2 % (0.0-2.0); EOSINOPHILS % (AUTO) 0.3 % (0.0-6.0); HEMATOCRIT 39 % (39-51); HEMOGLOBIN 13.6 g/dL (13.5-17.5); LYMPHOCYTES # (AUTO) 2.4 K/uL (0.8-4.8); LYMPHOCYTES % (AUTO) 12.1 % (20.0-44.0); MEAN CORPUSCULAR HGB CONC 35 g/dl (31.0-36.0); MEAN CORPUSCULAR VOLUME 90 fL (80-96); MONOCYTES # (AUTO) 1.2 K/uL (0.1-1.30); MONOCYTES % (AUTO) 6.1 % (2.0-12.0); NEUTROPHILS # (AUTO) 15.9 K/uL (1.8-8.9); NEUTROPHILS % (AUTO) 81.3 % (43.0-81.0); PLATELET COUNT (AUTO) 416 K/uL (150-450); RED BLOOD CELL COUNT(AUTO) 4.35 MIL/uL (4.5-6.0); WHITE BLOOD COUNT (AUTO) 19.5 K/uL (4.3-11.0)
[2021-09-20] MEDS: GABAPENTIN 100 MG CAPSULE PO SCH (08:44)
[2021-09-20] MEDS: PANTOPRAZOLE 40 MG TABLET.DR PO SCH (08:44)
[2021-09-20] MEDS: ENOXAPARIN SODIUM 40 MG/0.4 ML DISP.SYRIN SQ SCH (08:44)
[2021-09-20] MEDS: TERAZOSIN HCL 1 MG CAPSULE PO SCH (08:45)
[2021-09-20] MEDS: OXYBUTYNIN CHLORIDE 5 MG TABLET PO SCH (08:45)
[2021-09-20] MEDS: CHOLECALCIFEROL 1,000 UNIT TABLET (VIT D3) PO SCH (08:45)
[2021-09-20] MEDS: TOPIRAMATE 25 MG TABLET PO SCH ×2 (08:45→17:13)
[2021-09-20] MEDS: ASCORBIC ACID 500 MG TABLET PO SCH (08:45)
[2021-09-20] MEDS: ZINC SULFATE 220 MG CAPSULE PO SCH (08:45)
[2021-09-20] MEDS: AMLODIPINE BESYLATE 5 MG TABLET PO SCH (08:45)
[2021-09-20] MEDS: DEXAMETHASONE SOD PHOSPHATE 10 MG/ML VIAL IV SCH (08:46)
[2021-09-20] MEDS: METHOTREXATE SODIUM (2.5MG) 2.5 MG TABLET PO SCH (08:48)
[2021-09-20 09:52] LABS: CREATININE 1.1 mg/dL (0.6-1.3); POTASSIUM 4.2 mmol/L (3.5-5.1)
[2021-09-20 12:00] VITALS: BP 140/79
[2021-09-20 16:00] VITALS: BP 150/85
--- NOTE | 2021-09-20 18:48 | NUR ---
RN CLOSING NOTE PATIENT LYING IN BED COMFORTABLY, ALERT AND ORIENTED X4 ABLE TO VERBALIZE NEEDS, PATIENT ON NC 4LPM, O2 SAT OF 95% AT REST, BREATHING EVEN AND UNLABORED, TOLERATING WELL, ON TELE MONITOR SR AT THIS TIME NO COMPLAINS OF PAIN, CONTINENT ON BOWEL AND BLADDER, BATHROOM PRIVILEGES, ON REGULAR DIET, ISOLATION PRECAUTION OBSERVED, CONTINUE TO TITRATE O2 AND REST IN PRONE POSITION TOLERATED, CONTINUE DVT PPX, S/P REMDESIVIR SAFETY MEASURES OBSERVED, BED WHEELS LOCK, CALL LIGHT WITHIN REACH, ALL NEEDS MET, WILL ENDORSE TO REAL ESTATE REPRESENTATIVE NURSE FOR ANGELA.
[2021-09-20 20:00] VITALS: BP 156/94
--- NOTE | 2021-09-20 20:00 | NUR ---
WEIGHT COUNT OPERATOR NOTES RECEIVED PATIENT IN BED AWAKE A/OX4 ON 4LITERS OF O2 OF NC .ON TELE MONITOR SR OCCASIONALLY, PVC COVID POSITIVE ISOLATION PRECAUTIONS OBSERVED, TEACHING PROVIDED, SATURATION 92-93% NO DISTRESS NOTED AT THIS TIME , NO C/O OF PAIN . LEFT IV AC 20G IN PLACE PATENT AND FLUSHING WELL, SAFETY MEASURE IN PLACE, BED LOCKED AND IN LOWEST POSITION, WILL CONTINUE TO MONITOR PTS,
[2021-09-20] MEDS ORDERED: SIMETHICONE 80 MG TAB.CHEW PO PRN (21:00)
[2021-09-21] VITALS: BP 130/61
[2021-09-21 04:00] VITALS: BP 134/60
--- NOTE | 2021-09-21 06:37 | NUR ---
ASSEMBLER PRODUCTION LINE NOTES PATIENT IN BED , RESPIRATION EVEN AND UNLABORED WITH NO SIGN OF DISTRESS AT THIS TIME, PT IS ON OXYGEN, 4 LITERS OF 02 VIA NC WITH 92-93%. WILL ENDORSE TO RN DAY SHIFT FOR CONTINUITY OF CARE,
--- NOTE | 2021-09-21 07:50 | NUR ---
RN MORNING NOTE PT IS LYING IN BED ON O2 VIA NC 4L SAT AT 92% TOLERATING WELL AT REST. PT IS OBSERVED BREATHING EVENLY WITHOUT SIGNS OF DISTRESS OR LABORED BREATHING. WILL CONTINUE TO MONITOR PT THROUGHOUT THIS SHIFT.
[2021-09-21 08:00] VITALS: BP 159/84
[2021-09-21] MEDS: CHOLECALCIFEROL 1,000 UNIT TABLET (VIT D3) PO SCH (08:11)
[2021-09-21] MEDS: GABAPENTIN 100 MG CAPSULE PO SCH (08:11)
[2021-09-21] MEDS: ZINC SULFATE 220 MG CAPSULE PO SCH (08:12)
[2021-09-21] MEDS: TOPIRAMATE 25 MG TABLET PO SCH ×2 (08:12→16:49)
[2021-09-21] MEDS: DEXAMETHASONE SOD PHOSPHATE 10 MG/ML VIAL IV SCH (08:12)
[2021-09-21] MEDS: ASCORBIC ACID 500 MG TABLET PO SCH (08:12)
[2021-09-21] MEDS: AMLODIPINE BESYLATE 5 MG TABLET PO SCH (08:13)
[2021-09-21] MEDS: PANTOPRAZOLE 40 MG TABLET.DR PO SCH (08:13)
[2021-09-21] MEDS: TERAZOSIN HCL 1 MG CAPSULE PO SCH (08:13)
[2021-09-21] MEDS: OXYBUTYNIN CHLORIDE 5 MG TABLET PO SCH (08:13)
[2021-09-21] MEDS: ENOXAPARIN SODIUM 40 MG/0.4 ML DISP.SYRIN SQ SCH (08:19)
--- NOTE | 2021-09-21 10:00 | NUR ---
RN NOTES L HAND 20G IV INSERTED. PATENT AND FLUSHING WELL.
[2021-09-21 12:00] VITALS: BP 124/73
[2021-09-21 16:00] VITALS: BP 128/69
--- NOTE | 2021-09-21 19:22 | NUR ---
RN CLOSING NOTE PT IS COMFORTABLY LYING IN BED ON O2 VIA NC 4L O2 SAT AT 92% TOLERATING WELL AT REST. PT IS OBSERVED BREATHING EVENLY WITHOUT SIGNS OF DISTRESS OR LABORED BREATHING. CONTINUE TO TITRATE O2 AND PRONE TOLERATED. WILL ENDORSE TO NETTING INSPECTOR NURSE FOR ANGELA.
--- NOTE | 2021-09-21 19:30 | NUR ---
RN OPENING NOTE RECEIVED PATIENT IN BED. A/OX3. ON OXYGEN 4L/MIN VIA NASAL CANNULA, RESPIRATIONS ARE EVEN AND UNLABORED. NO S/S SOB NOTED. NO C/O PAIN AT THIS TIME. EXTERNAL TELE MONITOR READS SINUS RHYTHM/ SINUS TACHYCARDIA. IN NO APPARENT DISTRESS. IV ACCESS IN LEFT HAND #20 PATENT AND SALINE LOCKED. BED IS LOW AND LOCKED, HOB ELEVATED IN HIGH FOWLERS, SIDE RAILS UP X3, CALL LIGHT WITHIN REACH.
[2021-09-21 20:00] VITALS: BP_SYST 128; BP_SYST 144; BP_DIAS 69; BP_DIAS 72
[2021-09-22] VITALS: BP 144/72
[2021-09-22 04:00] VITALS: BP 154/76
--- NOTE | 2021-09-22 06:50 | NUR ---
RN CLOSING NOTE RESTING IN BED. A/OX3. REMAINS ON OXYGEN 4L/MIN VIA NASAL CANNULA, NO SOB, NO PAIN, NO DISTRESS. TELE IS READS SINUS RHYTHM/ SINUS TACHYCARDIA. LEFT HAND #20 SALINE LOCKED. BED REMAINS LOW AND LOCKED, HOB ELEVATED IN HIGH FOWLERS, SIDE RAILS UP X3, CALL LIGHT WITHIN REACH. WILL ENDORSE TO ONCOMING SHIFT.
--- NOTE | 2021-09-22 07:17 | NUR ---
RN NOTE PATIENT IS IN BED WITH HOB AT SEMI FOWLERS POSITION. PATIENT IS ON 4L NC WITH NO SIGNS OF LABORED BREATHING. PATIENT IS AOX4. LHAND 20 IS PATENT AND INTACT. BED IS LOCKED IN THE LOWEST POSITION, 3 GUARD RAILS RAISED, CALL LORENZO WITHIN REACH, AND ALL HOSPITAL SAFETY PRECAUTIONS ARE BEING FOLLOWED. WILL CONTINUE TO MONITOR THROUGHOUT SHIFT.
[2021-09-22 08:00] VITALS: BP 144/84
[2021-09-22] MEDS: OXYBUTYNIN CHLORIDE 5 MG TABLET PO SCH (08:12)
[2021-09-22] MEDS: PANTOPRAZOLE 40 MG TABLET.DR PO SCH (08:12)
[2021-09-22] MEDS: TOPIRAMATE 25 MG TABLET PO SCH ×2 (08:12→16:37)
[2021-09-22] MEDS: CHOLECALCIFEROL 1,000 UNIT TABLET (VIT D3) PO SCH (08:12)
[2021-09-22] MEDS: ASCORBIC ACID 500 MG TABLET PO SCH (08:12)
[2021-09-22] MEDS: DEXAMETHASONE SOD PHOSPHATE 10 MG/ML VIAL IV SCH (08:12)
[2021-09-22] MEDS: GABAPENTIN 100 MG CAPSULE PO SCH (08:13)
[2021-09-22] MEDS: ZINC SULFATE 220 MG CAPSULE PO SCH (08:13)
[2021-09-22] MEDS: AMLODIPINE BESYLATE 5 MG TABLET PO SCH (08:14)
[2021-09-22] MEDS: TERAZOSIN HCL 1 MG CAPSULE PO SCH (08:14)
[2021-09-22] MEDS: ENOXAPARIN SODIUM 40 MG/0.4 ML DISP.SYRIN SQ SCH (08:15)
[2021-09-22 08:24] VITALS: BP 144/84
[2021-09-22 16:00] VITALS: BP 137/84
--- NOTE | 2021-09-22 18:35 | NUR ---
RN NOTE PATIENT IS IN BED WITH HOB AT SEMI FOWLERS POSITION. PATIENT IS ON 4L NC WITH NO SIGNS OF LABORED BREATHING. PATIENT IS AOX4. LHAND 20 IS PATENT AND INTACT. BED IS LOCKED IN THE LOWEST POSITION, 3 GUARD RAILS RAISED, CALL LORENZO WITHIN REACH, AND ALL HOSPITAL SAFETY PRECAUTIONS ARE BEING FOLLOWED. ALL DUE MEDICATIONS GIVEN AND PATIENT REMAINED STABLE THROUGHOUT SHIFT. WILL ENDORSE TO CSR RETAIL RN.
--- NOTE | 2021-09-22 19:30 | NUR ---
RN OPENING NOTE PATIENT CAME FROM HOME, IS COVID POSITIVE FOR A WEEK, WAS COMPLAINIG OF SOB, COUGH, CONGESTION. HE IS NOW STATING AT 93 % ON NASAL CANULA 4 LITERS. IS A/O *4 . IS IN SINUS RHYTHM, WITH HR 67. ABLE TO URINAL, SKIN INTACT, DOES NOT COMPLAIN OF ANY PAIN OR DISCOMFORT. HOB ELEVATED AT 30 DEGREES, SIDE RAILS UP *3 . CALL LIGHT WITHIN REACH. BED IS LOW AND LOCKED.
[2021-09-22 20:00] VITALS: BP 152/83
[2021-09-23] VITALS: BP 144/67
[2021-09-23 04:00] VITALS: BP 146/72
--- NOTE | 2021-09-23 06:27 | NUR ---
RN NOTE PATIENT RESTING IN BED, REMAINS ON O2 4L , NASAL CANULA, NO COMPLAINS OF SOB, OR DISTRESS/PAIN. IV LINE MAINTAINED, BED LOW AND LOCKED, CALL LIGHT WITHIN REACH. WILL ENDORSE ON COMING SHIFT.
--- NOTE | 2021-09-23 07:24 | NUR ---
RN NOTE PATIENT IS IN BED WITH HOB AT SEMI FOWLERS POSITION. PATIENT IS ON 4L NC WITH NO SIGNS OF LABORED BREATHING. PATIENT IS AOX4. LHAND 22 IS PATENT AND INTACT. BED IS LOCKED IN THE LOWEST POSITION, 3 GUARD RAILS RAISED, CALL LORENZO WITHIN REACH, AND ALL HOSPITAL SAFETY PRECAUTIONS ARE BEING FOLLOWED. WILL CONTINUE TO MONITOR THROUGHOUT SHIFT.
[2021-09-23 08:00] VITALS: BP 146/78
--- NOTE | 2021-09-23 08:30 | NUR ---
RT Pt states he is feeling much better and does not feel like he needs CPT. No SOB or respiratory distress noted. Addendum: 09/23/21 at 0907 by YADIRA GILLIS RT Amended: Links added.
[2021-09-23] MEDS: GABAPENTIN 100 MG CAPSULE PO SCH (08:34)
[2021-09-23] MEDS: ZINC SULFATE 220 MG CAPSULE PO SCH (08:34)
[2021-09-23] MEDS: OXYBUTYNIN CHLORIDE 5 MG TABLET PO SCH (08:35)
[2021-09-23] MEDS: ASCORBIC ACID 500 MG TABLET PO SCH (08:35)
[2021-09-23] MEDS: TOPIRAMATE 25 MG TABLET PO SCH ×2 (08:35→16:25)
[2021-09-23] MEDS: AMLODIPINE BESYLATE 5 MG TABLET PO SCH (08:35)
[2021-09-23] MEDS: TERAZOSIN HCL 1 MG CAPSULE PO SCH (08:35)
[2021-09-23] MEDS: DEXAMETHASONE SOD PHOSPHATE 10 MG/ML VIAL IV SCH (08:35)
[2021-09-23] MEDS: CHOLECALCIFEROL 1,000 UNIT TABLET (VIT D3) PO SCH (08:35)
[2021-09-23] MEDS: ENOXAPARIN SODIUM 40 MG/0.4 ML DISP.SYRIN SQ SCH (08:38)
[2021-09-23] MEDS: PANTOPRAZOLE 40 MG TABLET.DR PO SCH (08:42)
[2021-09-23 12:00] VITALS: BP 142/73
[2021-09-23 16:00] VITALS: BP 146/74
--- NOTE | 2021-09-23 18:38 | NUR ---
RN NOTE PATIENT IS IN BED WITH HOB AT SEMI FOWLERS POSITION. PATIENT IS ON 3L NC WITH NO SIGNS OF LABORED BREATHING. PATIENT IS AOX4. LHAND 22 IS PATENT AND INTACT. BED IS LOCKED IN THE LOWEST POSITION, 3 GUARD RAILS RAISED, CALL [facility] WITHIN REACH, AND ALL HOSPITAL SAFETY PRECAUTIONS ARE BEING FOLLOWED. ALL MEDICATIONS GIVEN AND PATIENT REMAINED STABLE THROUGHOUT SHIFT. WILL ENDORSE TO LAST CODE STRIPER RN.
[2021-09-23 20:00] VITALS: BP 145/74
--- NOTE | 2021-09-23 20:00 | NUR ---
RN NOTE RECEIVED PT IN BED,AWAKE ALERT AND ORIENTED X 4. DENIES ANY SOB OR PAIN AT THIS TIME. ON 3L O2 VIA NC SATING AT 97 %. NO S/SX OF DISTRESS. TELE MONITOR SHOWS SINUS RHYTHM WITH HR OF 83. ALL SAFETY MEASURES IN PLACE. WILL CONTINUE TO MONITOR.
[2021-09-24] VITALS: BP 149/78
[2021-09-24 04:00] VITALS: BP 135/69
[2021-09-24 06:33] LABS: BASOPHILS % (AUTO) 0.1 % (0.0-2.0); HEMATOCRIT 38 % (39-51); HEMOGLOBIN 13.3 g/dL (13.5-17.5); LYMPHOCYTES # (AUTO) 2.3 K/uL (0.8-4.8); LYMPHOCYTES % (AUTO) 11.1 % (20.0-44.0); MEAN CORPUSCULAR HGB CONC 35 g/dl (31.0-36.0); MEAN CORPUSCULAR VOLUME 91 fL (80-96); MONOCYTES # (AUTO) 1.3 K/uL (0.1-1.30); MONOCYTES % (AUTO) 6.4 % (2.0-12.0); NEUTROPHILS % (AUTO) 82.4 % (43.0-81.0); PLATELET COUNT (AUTO) 323 K/uL (150-450); RED BLOOD CELL COUNT(AUTO) 4.13 MIL/uL (4.5-6.0); WHITE BLOOD COUNT (AUTO) 20.7 K/uL (4.3-11.0)
--- NOTE | 2021-09-24 06:41 | NUR ---
RN NOTE PT SLEEPING, AROUSES EASILY. O2 TITRATED TO 2L VIA NC, TOLERATING. DENIES ANY SOB. NO DISTRESS NOTED. O2 SAT AT 97%. PT DENIES ANY PAIN. SR ON TELE MONITOR. ABLE TO MAKE NEEDS KNOWN. NO CHANGES IN LOC NOTED. IV LINE ON LHAND PATENT AND INTACT. ALL NEEDS ATTENDED. WILL ENDORSE TO NEXT SHIFT NURSE FOR ANGELA.
[2021-09-24] MEDS: PANTOPRAZOLE 40 MG TABLET.DR PO SCH (06:53)
[2021-09-24 06:59] LABS: CALCIUM, SERUM 8.2 mg/dL (8.5-10.1); CREATININE 1.2 mg/dL (0.6-1.3); POTASSIUM 3.9 mmol/L (3.5-5.1)
[2021-09-24 08:00] VITALS: BP 149/89
[2021-09-24] MEDS: ZINC SULFATE 220 MG CAPSULE PO SCH (08:43)
[2021-09-24] MEDS: OXYBUTYNIN CHLORIDE 5 MG TABLET PO SCH (08:43)
[2021-09-24] MEDS: CHOLECALCIFEROL 1,000 UNIT TABLET (VIT D3) PO SCH (08:43)
[2021-09-24] MEDS: TERAZOSIN HCL 1 MG CAPSULE PO SCH (08:44)
[2021-09-24] MEDS: DEXAMETHASONE SOD PHOSPHATE 10 MG/ML VIAL IV SCH (08:44)
[2021-09-24] MEDS: TOPIRAMATE 25 MG TABLET PO SCH (08:44)
[2021-09-24 08:45] VITALS: BP 149/97
[2021-09-24] MEDS: AMLODIPINE BESYLATE 5 MG TABLET PO SCH (08:45)
[2021-09-24] MEDS: ASCORBIC ACID 500 MG TABLET PO SCH (08:45)
[2021-09-24] MEDS: ENOXAPARIN SODIUM 40 MG/0.4 ML DISP.SYRIN SQ SCH (08:46)
[2021-09-24] MEDS: GABAPENTIN 100 MG CAPSULE PO SCH (08:49)
[2021-09-24] MEDS ORDERED: PRED20TA PO (10:27)
--- NOTE | 2021-09-24 16:02 | NUR ---
RN NOTE PT DISCHARGED WITH OXYGEN BROUGHT BY DAUGHTER. SAT O2 >90% ON 2L NC. NO SOB OR CHEST PAIN. PT ABLE TO AMBULATE. EXIT CARE EXPLAINED ON PCP F/U AND MED P/U AT LOCAL PHARMACY. MD ARMENDARIZ AWARE.
[2021-09-25] MEDS ORDERED: DEXAMETHASONE SOD PHOSPHATE 4 MG/ML VIAL IV SCH (09:00)
== END 2021-09-24 15:26 | disposition home or self-care (01) | DRG 177 ==
LOC: ER 20:47 → TELE1 23:46 → MEDSG1 09-12 08:06 → TELE-TD 09-15 14:58 → TELE1 09-18 13:29 → MEDSG1 09-24 08:25
PROVIDERS: ADMIT Internal Medicine; ATTEND Family Medicine
PROC: XW033E5 Introduction of Remdesivir Anti-infective into Peripheral Vein, Percutaneous Approach, New Technology Group 5 (ICD-10-PCS; principal; 2021-09-10)
DX: U07.1 COVID-19 (principal); J12.82 Pneumonia due to coronavirus disease 2019; J96.01 Acute respiratory failure with hypoxia; I10 Essential (primary) hypertension; M19.90 Unspecified osteoarthritis, unspecified site; N40.0 Benign prostatic hyperplasia without lower urinary tract symptoms; M06.9 Rheumatoid arthritis, unspecified; F32.9 Major depressive disorder, single episode, unspecified; G62.9 Polyneuropathy, unspecified; Z79.899 Other long term (current) drug therapy; D72.829 Elevated white blood cell count, unspecified
CPT/HCPCS: 36415; 36600; 71045-TC; 80048-TC; 80076-TC; 82728-TC; 82803-TC; 83605-TC; 83615-TC; 83880; 84484-TC; 85025-TC; 85378-TC; 85610-TC; 85730-TC; 86140-TC; 86480; 87040-TC; 87081-TC; 87899; 94668-TC; 94760-TC; 94762-TC; 94799-TC; A4216; G0378; J0456; J0696; J1100; J1200; J1650; J2930; J3262; J7030; J7050; J7060; J8610; Q0169; U0003